=== PATIENT | female | born 1960 | race Caucasian/White ===

== ENCOUNTER 2017-02-15 13:04 | Emergency (ER) | END 2017-02-15 17:58 | disposition home or self-care (01) ==

== ENCOUNTER 2017-03-13 14:56 | Emergency (ER) | END 2017-03-13 20:17 | disposition home or self-care (01) ==

== ENCOUNTER 2017-12-11 15:28 | Emergency (ER) | END 2017-12-11 20:48 | disposition home or self-care (01) ==